=== PATIENT | female | born 2000 | race Caucasian/White ===

== ENCOUNTER 2021-08-31 13:17 | Emergency (ER) | payer BC | END 2021-08-31 15:10 | disposition home or self-care (01) | LOC: FB.ED 13:17 | DX: J02.9 Acute pharyngitis, unspecified (principal); L30.9 Dermatitis, unspecified; Z79.899 Other long term (current) drug therapy | CPT/HCPCS: 36415; 70360; 84443; 87651-QW; 99283 ==